=== PATIENT | female | born 1995 | race Two or more races ===

== ENCOUNTER 2024-07-21 10:13 | Inpatient (IN) | payer SELFPAY ==
[~2024-07-21] VITALS: Ht 162.6 cm; Wt 48.5 kg
[2024-07-21] MEDS: IV NS 0.9% 1,000 ML BAG IV ONE (10:47)
[2024-07-21 11:00] LABS: BASOPHILS # (AUTO) 0.1 K/uL (0.0-0.2); BASOPHILS % (AUTO) 0.5 % (0.0-2.0); EOSINOPHILS % (AUTO) 0.1 % (0.0-6.0); HEMATOCRIT 36 % (33-45); HEMOGLOBIN 12.5 g/dL (11.5-14.8); LYMPHOCYTES # (AUTO) 0.6 K/uL (0.8-4.8); LYMPHOCYTES % (AUTO) 2.8 % (20.0-44.0); MEAN CORPUSCULAR HEMOGLOBIN 37 PG (26.0-33.0); MEAN CORPUSCULAR HGB CONC 35 g/dl (31.0-36.0); MEAN CORPUSCULAR VOLUME 105 fL (82-100); MONOCYTES % (AUTO) 5.4 % (2.0-12.0); NEUTROPHILS # (AUTO) 17.8 K/uL (1.8-8.9); NEUTROPHILS % (AUTO) 91.2 % (43.0-81.0); PLATELET COUNT (AUTO) 251 K/uL (150-450); RED BLOOD CELL COUNT(AUTO) 3.41 MIL/uL (4.0-5.2); RED CELL DISTRIBUTION WIDTH 15.1 % (11.5-15.0); WHITE BLOOD COUNT (AUTO) 19.5 K/uL (4.3-11.0)
[2024-07-21 11:16] LABS: ALANINE AMINOTRANSFERASE 28 U/L (12-78); ALBUMIN 2.2 g/dL (3.4-5.0); ALKALINE PHOSPHATASE 294 U/L (46-116); ASPARTATE AMINOTRANSFERASE 135 U/L (15-37); BILIRUBIN,DIRECT 6.9 mg/dL (0.0-0.2); BILIRUBIN,TOTAL 7.9 mg/dL (0.2-1.0); CALCIUM, SERUM 7.9 mg/dL (8.5-10.1); CARBON DIOXIDE 39 mmol/L (21-32); CREATININE 0.8 mg/dL (0.6-1.3); GLUCOSE 99 mg/dL (74-106); TOTAL PROTEIN, SERUM 7.2 g/dL (6.4-8.2); UREA NITROGEN, BLOOD 4 mg/dL (7-18)
[2024-07-21 11:23] LABS: CHLORIDE 69 mmol/L (98-107); POTASSIUM 1.7 mmol/L (3.5-5.1); SODIUM SERUM 117 mmol/L (136-145)
[2024-07-21 11:24] LABS: ACETAMINOPHEN <10 ug/ml (10-30); ALCOHOL, BLOOD < 10 mg/dL (0-10); SALICYLATE < 2.8 mg/dL (2.8-20.0)
[2024-07-21] MEDS ORDERED: POTASSIUM CL. PREMIX PERIPHER. 50 ML ONE ×2 (11:29→12:41)
[2024-07-21] MEDS: MULTIVITAMINS,THERAGRAN 1 UDTAB TABLET PO ONE (11:30)
[2024-07-21] MEDS ORDERED: MULTIVITAMINS,THERAGRAN 1 UDTAB TABLET ONE (11:32)
[2024-07-21] MEDS: MULTIVITAMINS,THERAGRAN 1 UDTAB TABLET PO SCH (11:40)
[2024-07-21] MEDS: POTASSIUM CHLORIDE 20 MEQ TAB.PRT.SR PO ONE (11:40)
[2024-07-21] MEDS: POTASSIUM CL. PREMIX PERIPHER. 50 ML IV SCH (11:40)
[2024-07-21 11:45] LABS: INR 2.24 (0.91-1.10); PROTHROMBIN TIME 22.5 SECS (9.2-11.1)
[2024-07-21 11:48] LABS: BAND % (MANUAL) 1 % (0.0-5.0); EOSINOPHILS % (MANUAL) 2 % (0-4); LYMPHOCYTES % (MANUAL) 6 % (16-48); MONOCYTES % (MANUAL) 3 % (0-11.0); NEUTROPHILS % (MANUAL) 88 (42-76); PLATELET ESTIMATE ADEQUATE
[2024-07-21 11:49] LABS: ANISOCYTOSIS 1+; STOMATOCYTES 2+
[2024-07-21] MEDS: Thiamine 100 MG in IV D5W 50 ML IV SCH (11:50)
[2024-07-21 11:57] VITALS: O2SAT 98
[2024-07-21] MEDS ORDERED: ACETAMINOPHEN 325 MG TABLET PO PRN (12:30)
[2024-07-21] MEDS ORDERED: Z GUARD REMEDY 4 OZ OINT TP PRN (12:30)
[2024-07-21] MEDS ORDERED: ONDANSETRON HCL/PF 4 MG/2 ML VIAL IVP PRN (12:30)
[2024-07-21] MEDS ORDERED: ALPRAZOLAM 0.5 MG TABLET PO PRN (12:30)
[2024-07-21] MEDS ORDERED: Magnesium 1GM/D5W 100ML PREMIX 100 ML IV ONE (13:04)
[2024-07-21] MEDS: Magnesium 1GM/D5W 100ML PREMIX 100 ML IV SCH (13:08)
[2024-07-21 13:09] LABS: APPEARANCE,URINE CLEAR (CLEAR); BILIRUBIN,URINE 2+ (NEGATIVE); BLOOD, URINE NEGATIVE Ery/uL (NEGATIVE); COLOR,URINE YELLOW (YELLOW); KETONES,URINE NEGATIVE (NEGATIVE); LEUKOCYTE ESTERASE ,URINE 2+ (NEGATIVE); NITRITE, URINE POSITIVE (NEGATIVE); PH,URINE 5.5 (5.0-8.0); PROTEIN,URINE NEGATIVE (NEGATIVE); UGLUCOSE NEGATIVE (NEGATIVE); UROBILINOGEN,URINE 0.2 EU/dL (0.2)
[2024-07-21 13:13] LABS: PREGNANCY TEST URINE QUAL NEGATIVE (NEGATIVE)
[2024-07-21 13:15] LABS: AMPHETAMINE, URINE NEGATIVE (NEGATIVE); BARBITURATE, URINE NEGATIVE (NEGATIVE); BENZODIAZEPINE, URINE NEGATIVE (NEGATIVE); CANNABINOID, URINE NEGATIVE (NEGATIVE); COCCAINE, URINE NEGATIVE (NEGATIVE); OPIATE, URINE NEGATIVE (NEGATIVE); PHENCYCLIDINE SCREEN,URINE NEGATIVE (NEGATIVE)
[2024-07-21 13:17] LABS: RBC,URINE 0-2 /HPF (0-2); WBC,URINE 21-50 /HPF (0-3)
[2024-07-21 13:18] LABS: ADD URINE CULTURE YES; BACTERIA,URINE 1+ /HPF (None Seen)
[2024-07-21] MEDS: IV NS 0.9% 1,000 ML IV PRN (14:01)
[2024-07-21] MEDS: PANTOPRAZOLE 40 MG TABLET.DR PO SCH (14:07)
[2024-07-21 16:00] VITALS: BP 103/63; TEMP 98.4; O2SAT 96
[2024-07-21 19:08] LABS: CALCIUM, SERUM 6.4 mg/dL (8.5-10.1); CREATININE 0.5 mg/dL (0.6-1.3); MAGNESIUM 1.9 mg/dL (1.8-2.4); POTASSIUM 3.3 mmol/L (3.5-5.1)
[2024-07-21 21:10] VITALS: BP 97/50; TEMP 97.7; O2SAT 96
[2024-07-22 00:11] VITALS: BP 91/67; TEMP 98.1; O2SAT 100
[2024-07-22 05:00] VITALS: BP 90/60; TEMP 99.7; O2SAT 99
[2024-07-22 06:30] LABS: BASOPHILS % (AUTO) 0.3 % (0.0-2.0); EOSINOPHILS % (AUTO) 0.1 % (0.0-6.0); HEMATOCRIT 30 % (33-45); HEMOGLOBIN 10.5 g/dL (11.5-14.8); LYMPHOCYTES # (AUTO) 0.8 K/uL (0.8-4.8); LYMPHOCYTES % (AUTO) 5.5 % (20.0-44.0); MEAN CORPUSCULAR HEMOGLOBIN 37 PG (26.0-33.0); MEAN CORPUSCULAR HGB CONC 36 g/dl (31.0-36.0); MEAN CORPUSCULAR VOLUME 104 fL (82-100); MONOCYTES # (AUTO) 1.4 K/uL (0.1-1.30); MONOCYTES % (AUTO) 9.2 % (2.0-12.0); NEUTROPHILS % (AUTO) 84.9 % (43.0-81.0); PLATELET COUNT (AUTO) 232 K/uL (150-450); RED BLOOD CELL COUNT(AUTO) 2.83 MIL/uL (4.0-5.2); RED CELL DISTRIBUTION WIDTH 15.1 % (11.5-15.0); WHITE BLOOD COUNT (AUTO) 15.3 K/uL (4.3-11.0)
[2024-07-22 06:54] LABS: CALCIUM, SERUM 7.2 mg/dL (8.5-10.1); CREATININE 0.5 mg/dL (0.6-1.3)
[2024-07-22 07:03] LABS: POTASSIUM 2.4 mmol/L (3.5-5.1)
[2024-07-22] MEDS: THIAMINE HCL 100 MG TABLET PO SCH (08:37)
[2024-07-22] MEDS: FOLIC ACID 1 MG TABLET PO SCH (08:37)
[2024-07-22] MEDS: POTASSIUM CHLORIDE 20 MEQ POWDER PACKET PO ONE ×3 (08:56→15:42)
[2024-07-22] MEDS: NEUTRA PHOS 1 POWD.PACKET PO ONE ×2 (08:56→12:47)
[2024-07-22] MEDS: CEFTRIAXONE 1 G in IV D5W 50 ML IV SCH (08:56)
[2024-07-22] MEDS ORDERED: FOLI0.8C PO (10:39)
[2024-07-22] MEDS ORDERED: THIA100T74 PO (10:39)
[2024-07-22] MEDS ORDERED: ALPR0.25 PO (10:39)
[2024-07-22] MEDS ORDERED: CEPH-570 PO (10:41)
== END 2024-07-22 16:00 | disposition home or self-care (01) | DRG 641 ==
LOC: ER 10:17 → TELE 12:27
PROVIDERS: ADMIT Nurse Practitioner Acute Care; ATTEND Nurse Practitioner Acute Care
DX: E87.1 Hypo-osmolality and hyponatremia (principal); E44.0 Moderate protein-calorie malnutrition; Z68.1 Body mass index [BMI] 19.9 or less, adult; E87.6 Hypokalemia; D53.9 Nutritional anemia, unspecified; E88.09 Other disorders of plasma-protein metabolism, not elsewhere classified; E80.6 Other disorders of bilirubin metabolism; F10.10 Alcohol abuse, uncomplicated; Y90.0 Blood alcohol level of less than 20 mg/100 ml; F41.9 Anxiety disorder, unspecified; D72.829 Elevated white blood cell count, unspecified; F32.A Depression, unspecified; F29 Unspecified psychosis not due to a substance or known physiological condition; E83.42 Hypomagnesemia
CPT/HCPCS: 36415; 76700-TC; 80048-TC; 80076-TC; 81001; 82140-TC; 83735-TC; 84100-TC; 84703-TC; 85025-TC; 85610-TC; 87086-TC; A4223; G0378; G0480; J0696; J3475; J3480; J7030; J7040; J7060

== ENCOUNTER 2024-07-28 21:44 | Emergency (ER) | payer SELFPAY ==
[~2024-07-28] VITALS: Ht 160 cm; Wt 50.8 kg
[~2024-07-28 21:44] MED LIST: ALPR0.25 PO; CEPH-570 PO; FOLI0.8C PO; THIA100T74 PO
[2024-07-28 22:37] VITALS: BP 105/68; TEMP 99.1; O2SAT 99
[2024-07-29] MEDS ORDERED: MAGN200T4 PO (10:21)
[2024-07-29] MEDS ORDERED: MULT-188 PO (10:21)
== END 2024-07-28 23:12 | disposition left against medical advice (07) ==
LOC: ER 21:46
DX: R10.84 Generalized abdominal pain (principal); Z53.21 Procedure and treatment not carried out due to patient leaving prior to being seen by health care provider

== ENCOUNTER 2024-07-29 07:19 | Emergency (ER) | payer SELFPAY ==
[~2024-07-29] VITALS: Ht 160 cm; Wt 62.1 kg
[2024-07-29 08:04] LABS: BASOPHILS # (AUTO) 0.2 K/uL (0.0-0.2); BASOPHILS % (AUTO) 1.8 % (0.0-2.0); EOSINOPHILS # (AUTO) 0.1 K/uL (0.0-0.7); EOSINOPHILS % (AUTO) 0.4 % (0.0-6.0); HEMATOCRIT 33 % (33-45); LYMPHOCYTES # (AUTO) 1.3 K/uL (0.8-4.8); LYMPHOCYTES % (AUTO) 9.9 % (20.0-44.0); MEAN CORPUSCULAR HEMOGLOBIN 35 PG (26.0-33.0); MEAN CORPUSCULAR HGB CONC 34 g/dl (31.0-36.0); MEAN CORPUSCULAR VOLUME 105 fL (82-100); MONOCYTES # (AUTO) 0.9 K/uL (0.1-1.30); NEUTROPHILS # (AUTO) 10.6 K/uL (1.8-8.9); NEUTROPHILS % (AUTO) 80.9 % (43.0-81.0); PLATELET COUNT (AUTO) 336 K/uL (150-450); RED BLOOD CELL COUNT(AUTO) 3.12 MIL/uL (4.0-5.2); RED CELL DISTRIBUTION WIDTH 15.7 % (11.5-15.0); WHITE BLOOD COUNT (AUTO) 13.1 K/uL (4.3-11.0)
[2024-07-29 09:02] LABS: CALCIUM, SERUM 8.2 mg/dL (8.5-10.1); CREATININE 0.5 mg/dL (0.6-1.3)
[2024-07-29 09:09] LABS: INR 1.56 (0.91-1.10); PARTIAL THROMBOPLASTIN TIME 34.2 SEC (24.3-34.3); PROTHROMBIN TIME 16.1 SECS (9.2-11.1)
[2024-07-29 09:10] LABS: ALBUMIN 1.8 g/dL (3.4-5.0); BILIRUBIN,DIRECT 5.1 mg/dL (0.0-0.2); BILIRUBIN,TOTAL 6.3 mg/dL (0.2-1.0); TOTAL PROTEIN, SERUM 6.9 g/dL (6.4-8.2)
[2024-07-29] MEDS ORDERED: MAGN200T4 PO (10:21)
[2024-07-29] MEDS ORDERED: MULT-188 PO (10:21)
[2024-07-29 12:03] VITALS: BP 104/70; TEMP 98.4; O2SAT 99
== END 2024-07-29 12:03 | disposition home or self-care (01) ==
LOC: ER 07:38
DX: F10.90 Alcohol use, unspecified, uncomplicated (principal); R18.8 Other ascites; K74.60 Unspecified cirrhosis of liver; Z79.899 Other long term (current) drug therapy; Y90.9 Presence of alcohol in blood, level not specified
CPT/HCPCS: 36415; 71045-TC; 76700-TC; 80048-TC; 80076-TC; 82140-TC; 83690-TC; 85025-TC; 85730-TC